=== PATIENT | female | born 1965 | race American Indian/Alaskan Native ===

== ENCOUNTER 2019-06-09 20:44 | Inpatient (IN) | payer OTHER ==
[2019-06-09] MEDS ORDERED: ALTEPLASE 100 MG INJ KIT IV ONE ×2 (21:06)
[2019-06-09] MEDS ORDERED: SODIUM CHLORIDE 0.9% 50 ML IVPB IV ONE (21:06)
[2019-06-09] MEDS ORDERED: ALTEPLASE 100 MG INJ KIT ONE (21:08)
--- NOTE | 2019-06-09 21:14 | Cat Scan Report ---
NONENHANCED CT SCAN OF THE BRAIN: INDICATION: Stroke symptoms CODE STROKE [phone]. TECHNIQUE: Routine CT head without contrast. Sagittal and coronal reformatted images were obtained. A ll CT scans at this location are performed using CT dose reduction for ALARA by means of automated ex posure control. COMPARISON: None. FINDINGS: BRAIN / INTRACRANIAL CONTENTS: Hemorrhage:No intracranial hemorrhage; no subarachnoid hemorrhage Stroke mimics: None Acute/subacute territorial infarction: No CT findings to suggest acute territorial infarction; basal ganglia and thalami are normal; hig h convexity cortical sulci normal Lacunar infarctions: Vasculopathy: Dense middle cerebral artery sign: Not present Internal carotid artery terminus: Normal Basilar artery:Normal Middle cerebral artery branches in the sylvian fissure (Dot sign): Normal Calcified embolus: Not present ASPECT score: Not applicable Chronic lesions: Chronic white matter lesions seen on the left frontal horn and in the left centrum s emiovale wall probably due to chronic small vessel disease Craniocervical junction:No significant abnormality Orbits:No significant abnormality Paranasal sinuses/mastoids:No significant abnormality Additional findings: None IMPRESSION: No acute/ subacute infarction This exam was performed as part of a code stroke protocol. The exam was completed at [facility] on 06/09/2019 8:03 PM. The exam was reviewed at 8:06 PM and ER physician was notified at 8:09 PM Central daylight saving time. Signer Name: Robel De Guzman MD Signed: 06/09/2019 9:10 PM Workstation Name: [id number]
[2019-06-09] MEDS ORDERED: hydrALAZINE 20 MG/1 ML INJ IV ONE (21:22)
[2019-06-09 21:25] LABS: Hematocrit 43.7 % (30.3-42.9); Hemoglobin 14.2 gm/dl (10.1-14.3); Mean Corpuscular HGB Conc 32 % (30-34); Mean Corpuscular Volume 84 fl (79-97); Red Blood Count 5.19 M/mm3 (3.65-5.03); Red Cell Distribution Width 13.6 % (13.2-15.2)
[2019-06-09 21:26] LABS: INR 0.96 (0.87-1.13); Platelet Count 276 K/mm3 (140-440); Thrombin Time 13.1 Sec. (15.1-19.6)
[2019-06-09] MEDS ORDERED: hydrALAZINE 20 MG/1 ML INJ ONE (21:27)
[2019-06-09 21:30] LABS: Creatine Kinase MB 1.4 ng/mL (0.0-4.0)
[2019-06-09 21:32] LABS: Alanine Aminotransferase 17 units/L (7-56); Albumin 4.5 g/dL (3.9-5); BUN/Creatinine Ratio 24; Blood Urea Nitrogen 17 mg/dL (7-17); Calcium 9.9 mg/dL (8.4-10.2); Hemolysis Index 7
--- NOTE | 2019-06-09 21:34 | Consultation ---
History of Present Illness History of present illness: [facility] Tele[facility] Date of Service: 06/09/2019 20:39:12 Impression: Rule Out Acute Ischemic Stroke Comments/Sign-Out: 54 YO F with h/o HTN presented with an episode of unresponsiveness followed by confusion, right facial droop and trouble with comprehension. R/O stroke Metrics: Last Known Well: 06/09/2019 19:45:00 [employer] Notification Time: 06/09/2019 20:38:48 Arrival Time: 06/09/2019 20:44:00 Stamp Time: 06/09/2019 20:39:12 Time First Login Attempt: 06/09/2019 20:44:43 Video Start Time: 06/09/2019 20:44:43 Symptoms: unresponsive, AMS NIHSS Start Assessment Time: 06/09/2019 20:55:00 tPA Verbal Order Time: 06/09/2019 21:03:34 Patient is a candidate for tPA. tPA CPOE Order Time: 06/09/2019 21:05:13 Needle Time: 06/09/2019 21:15:00 Weight Noted by Staff: 81.4 kg Video End Time: 06/09/2019 21:32:18 CT head showed no acute hemorrhage or acute core infarct. Lower Likelihood of Large Vessel Occlusion but Following Stat Studies are Recommended CTA Head and Neck. ED Physician notified of diagnostic impression and management plan on 06/09/2019 21:09:57 Verbal Consent to tPA: I have explained to the Patient and Family the nature of the patients condition, the use of tPA fibrinolytic agent, and the benefits to be reasonably expected compared with alternative approaches. I have discussed the likelihood of major risks or complications of this procedure including (if applicable) but not limited to loss of limb function, brain damage, paralysis, hemorrhage, infection, complications from transfusion of blood components, drug reactions, blood clots and loss of life. I have also indicated that with any procedure there is always the possibility of an unexpected complication. All questions were answered and Patient and Family express understanding of the treatment plan and consent to the treatment. Our recommendations are outlined below. Recommendations: IV tPA recommended. tPA bolus given Without Complication. IV tPA Total Dose 73.3 mg IV tPA Bolus Dose 7.3 mg IV tPA Infusion Dose - 65.9 mg Routine post tPA monitoring including neuro checks and blood pressure control during/after treatment Monitor blood pressure Check blood pressure and NIHSS every 15 min for 2 h, then every 30 min for 6 h, and finally every hour for 16 h. Manage Blood Pressure per post tPA protocol. Admission to ICU CT brain 24 hours post tPA NPO until swallowing screen performed and passed No antiplatelet agents or anticoagulants (including heparin for DVT prophylaxis) in first 24 hours No Hubbard catheter, nasogastric tube, arterial catheter or central venous catheter for 24 hr, unless absolutely necessary Telemetry Bedside swallow evaluation HOB less than 30 degrees Euglycemia Avoid hyperthermia, PRN acetaminophen DVT prophylaxis Inpatient Neurology Consultation Stroke evaluation as per inpatient neurology recommendations Discussed with ED physician History of Present Illness: Patient is a 54 year old Female. Patient was brought by EMS for symptoms of unresponsive, AMS 54 YO F with h/o HTN presented with an episode of unresponsiveness followed by confusion, right facial droop and trouble with comprehension. Patient does not provide much history. Spoke with her son Georgi franco who states that she was fine and all of sudden went unresponsive and was not making sense. Risks/benefits/cotraindications of TPA were disucssed with her son who denied any contraindications, understood the risks and wanted to proceed with TPA. CT head showed no acute hemorrhage or acute core infarct. Last seen normal was within 4.5 hours. There is no history of hemorrhagic complications or intracranial hemorrhage. There is no history of Recent Anticoagulants. There is no history of recent major surgery. There is no history of recent stroke. Examination: BP(165/87), Pulse(94), Blood Glucose(105) 1A: Level of Consciousness - Alert; keenly responsive + 0 1B: Ask Month and Age - 1 Question Right + 1 1C: Blink Eyes & Squeeze Hands - Performs Both Tasks + 0 2: Test Horizontal Extraocular Movements - Normal + 0 3: Test Visual Golden - No Visual Loss + 0 4: Test Facial Palsy (Use Grimace if Obtunded) - Normal symmetry + 0 5A: Test Left Arm Motor Drift - Drift, hits bed + 2 5B: Test Right Arm Motor Drift - Drift, hits bed + 2 6A: Test Left Leg Motor Drift - Drift, hits bed + 2 6B: Test Right Leg Motor Drift - Drift, hits bed + 2 7: Test Limb Ataxia (FNF/Heel-Haynes) - No Ataxia + 0 8: Test Sensation - Normal; No sensory loss + 0 9: Test Language/Aphasia - Mild-Moderate Aphasia: Some Obvious Changes, Without Significant Limitation + 1 10: Test Dysarthria - Mild-Moderate Dysarthria: Slurring but can be understood + 1 11: Test Extinction/Inattention - No abnormality + 0 NIHSS Score: 11 Patient was informed the Neurology Consult would happen via TeleHealth consult by way of interactive audio and video telecommunications and consented to receiving care in this manner. Due to the immediate potential for life-threatening deterioration due to underlying acute neurologic illness, I spent 35 minutes providing critical care. This time includes time for face to face visit via telemedicine, review of medical records, imaging studies and discussion of findings with providers, the patient and/or family. Dr Antonina Clements [facility] Case [id number] Medications and Allergies Allergies Allergy/AdvReac Type Severity Reaction Status Date / Time No Known Allergies Allergy Verified 06/09/19 21:09 Physical Examination - Vital Signs Vital Signs: Vital Signs Pulse Resp BP Pulse Ox 102 H 21 165/83 96 06/09/19 20:44 06/09/19 20:44 06/09/19 20:44 06/09/19 20:44 Results - Laboratory Findings CBC and BMP: 06/09/19 21:01 06/09/19 21:01 Abnormal Lab Findings: Abnormal Labs 06/09/19 06/09/19 06/09/19 21:01 21:01 21:01 WBC 16.8 H RBC 5.19 H Hct 43.7 H MCH 27 L Thrombin Time 13.1 L Sodium 135 L Chloride 96.4 L Carbon Dioxide 20 L Glucose 124 H Ammonia Total Protein 9.0 H 06/09/19 21:01 WBC RBC Hct MCH Thrombin Time Sodium Chloride Carbon Dioxide Glucose Ammonia 90.0 H Total Protein
--- NOTE | 2019-06-09 21:37 | Emergency Department Report ---
HPI - General Chief Complaint: Neuro Symptoms/Deficit Time Seen by Provider: 06/09/19 20:46 - HPI HPI: 54-year-old -[place] female presents to the emergency department via EMS from home as a code stroke. Apparently patient's last known well time was about 7:45 PM this evening. The patient was recently diagnosed with hypertension but prior to this she does not regularly follow with any primary care or specialty physicians. The patient was found to have right-sided facial droop and either difficulty with comprehension or aphasia. The patient has never been to this facility previously. She is a poor historian secondary to her current medical condition. ED Past Medical Hx - Past Medical History Previous Medical History?: Yes Hx Hypertension: Yes - Social History Smoking Status: Unknown if ever smoked ED Review of Systems ROS: Stated complaint: AMS/POSS STROKE Other details as noted in HPI Comment: Unobtainable due to pts medical conditions Physical Exam - Physical Exam Vital Signs: Vital Signs 06/09/19 20:44 Pulse Rate 102 H Respiratory 21 Rate Blood Pressure 165/83 O2 Sat by Pulse 96 Oximetry Physical Exam: GENERAL: Patient is ill-appearing. HENT: Normocephalic. Atraumatic. Patient has moist mucous membranes. EYES: Extraocular motions are intact. Pupils equal reactive to light bilaterally. NECK: Supple. Trachea is midline. CHEST/LUNGS: Clear to auscultation. There is no respiratory distress noted. HEART/CARDIOVASCULAR: Regular. There is no tachycardia. ABDOMEN: Abdomen is soft, nontender. Patient has normal bowel sounds. SKIN: Skin is warm and dry. NEURO: The patient is awake but appears confused and is nonverbal. She follows some commands. Withdraws from painful stimuli. There is right-sided nasolabial fold paresis. Bilateral upper extremity weakness with drift hitting the gurney. MUSCULOSKELETAL: There is no tenderness or deformity. There is no evidence of acute injury. ED Course Vital Signs 06/09/19 20:44 Pulse Rate 102 H Respiratory 21 Rate Blood Pressure 165/83 O2 Sat by Pulse 96 Oximetry - Reevaluation(s) Reevaluation #1: We have attempted to get a CT angiography of the head and neck twice but both times the IV contrast has extravasated. The patient's upper extremities have been examined and she is neurovascularly intact. There are good distal pulses and the soft tissue is soft and warm. We do not have any IV team available. I spoke with the telemedicine neurologist and updated him regarding the CT angiography. He is in agreement with the plan to get a repeat noncontrasted CT head. 06/09/19 23:31 06/10/19 02:51 I have continued to evaluate the right upper extremity after the contrast extravasation. There is some swelling apparent to the forearm and distal upper arm. Patient has +2/4 right radial pulse and capillary refill less than 2 seconds. There is full range of motion of the right upper extremity. The arm will be wrapped in a warm towel and slightly elevated on a pillow. - Consultations Consultation #1: Patient was seen by the telemedicine neurologist, Dr. Clements, immediately after the patient's return from CT scan of the head without contrast. He believes that the patient could have some generalized encephalopathy but given the facial droop and issues with comprehension he has recommended that the patient received TPA. 06/09/19 21:37 ED Medical Decision Making - Lab Data Result diagrams: 06/09/19 21:01 06/09/19 21:01 - EKG Data -: EKG Interpreted by Me EKG shows normal: sinus rhythm, axis, intervals (Prolonged QTC), QRS complexes (Q waves to the septal leads, LVH), ST-T waves Rate: normal - EKG Data When compared to previous EKG there are: previous EKG unavailable Interpretation: other (Sinus rhythm, normal axis, prolonged QTC, Q waves to the septal leads, LVH) - Radiology Data Radiology results: report reviewed interpreted by me: Chest x-ray does not show any pneumonia, pleural effusions or pneumothorax. There is some right-sided tracheal deviation and some superior mediastinum widening that appears higher than the aortic arch. NONENHANCED CT SCAN OF THE BRAIN: INDICATION: Stroke symptoms CODE STROKE [phone]. TECHNIQUE: Routine CT head without contrast. Sagittal and coronal reformatted images were obtained. All CT scans at this location are performed using CT dose reduction for ALARA by means of automated exposure control. COMPARISON: None. FINDINGS: BRAIN / INTRACRANIAL CONTENTS: Hemorrhage:No intracranial hemorrhage; no subarachnoid hemorrhage Stroke mimics: None Acute/subacute territorial infarction: No CT findings to suggest acute territorial infarction; basal ganglia and thalami are normal; high convexity cortical sulci normal Lacunar infarctions: Vasculopathy: Dense middle cerebral artery sign: Not present Internal carotid artery terminus: Normal Basilar artery:Normal Middle cerebral artery branches in the sylvian fissure (Dot sign): Normal Calcified embolus: Not present ASPECT score: Not applicable Chronic lesions: Chronic white matter lesions seen on the left frontal horn and in the left centrum semiovale wall probably due to chronic small vessel disease Craniocervical junction:No significant abnormality Orbits:No significant abno rmality Paranasal sinuses/mastoids:No significant abnormality Additional findings: None IMPRESSION: No acute/ subacute infarction CT neck wo con INDICATION / CLINICAL INFORMATION: mass abnormal Chest x-ray. TECHNIQUE: Axial CT imaging of the neck was obtained without contrast. Coronal and sagittal reformatted imaging obtained and reviewed. All CT scans at this lo cation are performed using CT dose reduction for ALARA by means of automated exposure control. COMPARISON: Chest radiograph ,06/09/2019 FINDINGS: CT neck without contrast demonstrates massively enlarged thyroid gland. The right lobe measures approximately 10.5 x 4.5 cm. The left lobe measures approximately 10.3 x 3.5 cm. The left thyroid lobe extends inferiorly into the superior aspect of the mediastinum. This very large goiter is the reason for the abnormally widened mediastinum on recent chest radiograph. I do not see any discrete mass or cyst within the enlarged thyroid gland. The thyroid gland is encasing the upper trachea and is causing mild mass effect and extrinsic compression on the t rachea. The more distal aspect of the trachea deviates to the right. The superior aspect of the right lobe extends posterior to to the pharynx at the level of the hyoid bone. There are a few mildly prominent lymph nodes in the upper cervical chain probably reactive. No additional masses are seen within the neck. Salivary glands are unremarkable. No significant osseous abnormality. IMPRESSION: 1. Massively enlarged thyroid gland consistent with goiter. The left thyroid lobe extends inferiorly to involve the superior mediastinum. Goiter is causing extrinsic mass effect on the upper portion of the trachea. 2. No other significant finding. CT chest wo con INDICATION / CLINICAL INFORMATION: Abnormal CXR. Chest radiograph demonstrated abnormally widened mediastinum. TECHNIQUE: Axial CT imaging of the thorax was obtained without contrast. Coronal and sagittal reformatted imaging obtained and reviewed. All CT scans at this location are performed using CT dose reduction for ALARA by means of automated exposure control. COMPARISON: Recent chest radiograph, 06/09/2019 FINDINGS: CT thorax without contrast demonstrates a massively enlarged thyroid gland some of which extends into the superior mediastinum. This would account for the abnormally widened mediastinum on recent chest radiograph. The thyroid lobes measure approximately 10-11 cm in length and approximately 4.5 cm in transverse diameter. The right thyroid lobe is larger than the left. The left thyroid lobe extends more inferiorly into the mediastinum. I do not see any discrete mass within the goiter. Goiter is causing the trachea to deviate to the right. There is some degree of extrinsic compression surrounding the upper trachea. The mediastinum is otherwise unremarkable. Thoracic aorta has a normal caliber. No adenopathy noted. Heart size is normal. No pericardial effusion. Both lungs are well aerated and clear. No evidence for pneumonia, mass, or pleural effusion. Imaging obtained of the upper abdomen demonstrates a small hiatal hernia but no other significant abnormality. No significant acute skeletal abnormality noted. Mild spondylitic change noted throughout the thoracic spine. IMPRESSION: 1. Massively enlarged thyroid gland consistent with goiter. No evidence of a discrete thyroid mass. There is mass effect on the trachea. 2. No pulmonary abnormality. - Medical Decision Making This patient presents to the emergency department as a code stroke. She is nonverbal and both appears to have some aphasia and difficulty with comprehensio n. Her exam is confusing as 1 minute she appears to have bilateral upper extremity weakness, but is then seen moving both extremities spontaneously shortly afterwards. A stat CT scan of the head without contrast was completed that did not show any bleed or acute infarction. The patient was seen by the telemedicine neurologist shortly upon return from CT scan, and the decision was made to give the patient TPA. The patient's labs shows a mild leukocytosis of about 16,000, hypokalemia with a potassium of 2.8, and hyperammonemia of 90. Although the neurologist feels that it is a low suspicion for a large vessel occlusion, the plan was to get a CT angiography of the head and neck. The patie nt had an initial attempt but the IV infiltrated and there was some contrast extravasation. I then placed a right brachial 18-gauge peripheral IV. This was an ultrasound-guided peripheral IV that appeared to be well placed, flushed well, had blood return, so the patient was once again sent for the CT angiography. The initial tests at CT also showed it to be a patent IV but shortly afterwards the patient once again had some contrast extravasation. The affected right upper extremity was reevaluated multiple times throughout the rest of her ED course and she has remained neurovascular intact. There is some swelling seen but she has normal skin color, good/brisk capillary refill, +2/4 radial pulse and there are no signs of any skin breakdown including any ulcerations or blistering. At this point in the evening, I do not have any IV team available and I am unable to get an MRI. I spoke to the telemedicine neurologist again and the decision was made to get a repeat CT scan of the head to make sure that there was no post TPA bleeding. The patient had a chest x-ray that showed a widened superior mediastinum and some right tracheal deviation. Therefore a CT scan of the neck and chest were also added. CT scan of the head did not show any ischemia, bleed, or any acute changes. CT scan of the neck and chest show a large thyroid goiter. The patient will be admitted to the ICU for further evaluation and treatment and was accepted for admission by the hospitalist, Dr. Scott. Critical Care Time: Yes Critical care time in (mins) excluding proc time.: 45 Critical care attestation.: If time is entered above; I have spent that time in minutes in the direct care of this critically ill patient, excluding procedure time. Due to the immediate potential for life-threatening deterioration due to underlying neurologic and metabolic conditions, I spent 45 minutes of critical care time with the patient. Critical Care Time: 45 minutes ED Disposition Clinical Impression: Hypokalemia, Hyperammonemia, Metabolic encephalopathy CVA (cerebral vascular accident) Qualifiers: CVA mechanism: unspecified Qualified Code(s): I63.9 - Cerebral infarction, unspecified Hypertension Qualifiers: Hypertension type: essential hypertension Qualified Code(s): I10 - Essential (primary) hypertension Disposition: 09 OP ADMIT IP TO THIS HOSP Is pt being admited?: Yes Condition: Serious Time of Disposition: 05:03
[2019-06-09 21:42] LABS: Partial Thromboplastin Time TNR Sec. (24.2-36.6)
[2019-06-09] MEDS ORDERED: LACTULOSE 20 GM/30 ML ORAL LIQD PO ONE (21:43)
[2019-06-09 21:55] LABS: Platelet Clumps 1+; RBC Morphology Normal; Total Cells Counted 100
[2019-06-09] MEDS ORDERED: niCARdipine 50 MG in SODIUM CHLORIDE 0.9% 250ML 230 ML IV SCH (22:00)
[2019-06-09] MEDS ORDERED: ONDANSETRON 4 MG/2 ML INJ ONE (22:43)
[2019-06-09] MEDS ORDERED: ONDANSETRON 4 MG/2 ML INJ IV ONE (22:45)
--- NOTE | 2019-06-10 00:03 | XRay Report ---
CHEST 1 VIEW INDICATION / CLINICAL INFORMATION: AMS. COMPARISON: None available. FINDINGS: SUPPORT DEVICES: None. HEART / MEDIASTINUM: The superior mediastinum is widened and there is displacement of the trachea to the right. Transverse measurement of the superior mediastinum is 8.4 cm. I suspect this will represen t substernal goiter, but further evaluation with chest CT is recommended to exclude mass.. LUNGS / PLEURA: No significant pulmonary or pleural abnormality. No pneumothorax. ADDITIONAL FINDINGS: No significant additional findings. IMPRESSION: 1. No acute pulmonary or pleural disease. 2. Abnormally widened superior mediastinum with tracheal displacement to the right. Recommend further evaluation with chest CT when the patient is able. The use of IV contrast, if possible, would be hel pful. Signer Name: Anahy Anaya MD Signed: 06/09/2019 11:58 PM Workstation Name: [id number]
--- NOTE | 2019-06-10 02:12 | Cat Scan Report ---
CT head/brain wo con INDICATION / CLINICAL INFORMATION: Altered Mental Status, Status-Post TPA REPEAT SCAN FROM EARLIER TONIGHT!. TECHNIQUE: Axial CT imaging of the brain was obtained without contrast. Coronal and sagittal reformatted imaging obtained and reviewed. All CT scans at this location are performed using CT dose reduction for ALAR A by means of automated exposure control. COMPARISON: Head CT, 06/09/2019 FINDINGS: No evidence for intracranial hemorrhage following TPA administration. No intracranial hemorrhage, mas s, or midline shift noted. Ventricular system and basilar cisterns are unremarkable. No suggestion of acute CVA. There continues to be chronic white matter lesions seen in the left frontal horn and left centrum semiovale unchanged from earlier study. Paranasal sinuses are well aerated and clear. IMPRESSION: 1. No acute intracranial abnormality at this time. No evidence for intracranial hemorrhage or evolvin g CVA. Signer Name: Anahy Anaya MD Signed: 06/10/2019 2:08 AM Workstation Name: [id number]
--- NOTE | 2019-06-10 02:18 | Cat Scan Report ---
CT chest wo con INDICATION / CLINICAL INFORMATION: Abnormal CXR. Chest radiograph demonstrated abnormally widened mediastinum. TECHNIQUE: Axial CT imaging of the thorax was obtained without contrast. Coronal and sagittal reformatted imagin g obtained and reviewed. All CT scans at this location are performed using CT dose reduction for ALA RA by means of automated exposure control. COMPARISON: Recent chest radiograph, 06/09/2019 FINDINGS: CT thorax without contrast demonstrates a massively enlarged thyroid gland some of which extends into the superior mediastinum. This would account for the abnormally widened mediastinum on recent chest radiograph. The thyroid lobes measure approximately 10-11 cm in length and approximately 4.5 cm in tr ansverse diameter. The right thyroid lobe is larger than the left. The left thyroid lobe extends more inferiorly into the mediastinum. I do not see any discrete mass within the goiter. Goiter is causing the trachea to deviate to the right. There is some degree of extrinsic compression surrounding the u pper trachea. The mediastinum is otherwise unremarkable. Thoracic aorta has a normal caliber. No adenopathy noted. Heart size is normal. No pericardial effusion. Both lungs are well aerated and clear. No evidence for pneumonia, mass, or pleural effusion. Imaging obtained of the upper abdomen demonstrates a small hiatal hernia but no other significant abn ormality. No significant acute skeletal abnormality noted. Mild spondylitic change noted throughout the thoraci c spine. IMPRESSION: 1. Massively enlarged thyroid gland consistent with goiter. No evidence of a discrete thyroid mass. T here is mass effect on the trachea. 2. No pulmonary abnormality. Signer Name: Anahy Anaya MD Signed: 06/10/2019 2:14 AM Workstation Name: [id number]
--- NOTE | 2019-06-10 02:24 | Cat Scan Report ---
CT neck wo con INDICATION / CLINICAL INFORMATION: mass abnormal Chest x-ray. TECHNIQUE: Axial CT imaging of the neck was obtained without contrast. Coronal and sagittal reformatted imaging obtained and reviewed. All CT scans at this location are performed using CT dose reduction for ALARA by means of automated exposure control. COMPARISON: Chest radiograph ,06/09/2019 FINDINGS: CT neck without contrast demonstrates massively enlarged thyroid gland. The right lobe measures appro ximately 10.5 x 4.5 cm. The left lobe measures approximately 10.3 x 3.5 cm. The left thyroid lobe ext ends inferiorly into the superior aspect of the mediastinum. This very large goiter is the reason for the abnormally widened mediastinum on recent chest radiograph. I do not see any discrete mass or cys t within the enlarged thyroid gland. The thyroid gland is encasing the upper trachea and is causing m ild mass effect and extrinsic compression on the trachea. The more distal aspect of the trachea devia dorina to the right. The superior aspect of the right lobe extends posterior to to the pharynx at the le anum of the hyoid bone. There are a few mildly prominent lymph nodes in the upper cervical chain proba cam reactive. No additional masses are seen within the neck. Salivary glands are unremarkable. No significant osseous abnormality. IMPRESSION: 1. Massively enlarged thyroid gland consistent with goiter. The left thyroid lobe extends inferiorly to involve the superior mediastinum. Goiter is causing extrinsic mass effect on the upper portion of the trachea. 2. No other significant finding. Signer Name: Anahy Anaya MD Signed: 06/10/2019 2:20 AM Workstation Name: [id number]
[2019-06-10] MEDS ORDERED: hydrALAZINE 20 MG/1 ML INJ IV ONE (02:41)
[2019-06-10] MEDS: POTASSIUM CHLORIDE 10 MEQ 10 MEQ/100 ML BAG IV SCH ×4 (02:58→11:53)
[2019-06-10] MEDS ORDERED: SODIUM CHLORIDE 0.9% 1000 ML 1,000 ML ONE (03:19)
[2019-06-10] MEDS ORDERED: POTASSIUM CHLORIDE 10 MEQ 10 MEQ/100 ML BAG IV ONE (03:54)
[2019-06-10] MEDS ORDERED: ONDANSETRON 4 MG/2 ML INJ IV PRN (04:43)
[2019-06-10] MEDS ORDERED: METOCLOPRAMIDE 10 MG TAB PO PRN (04:43)
[2019-06-10] MEDS ORDERED: MAGNESIUM HYDROXIDE (MOM) ORAL LIQD UDC PO PRN (04:43)
[2019-06-10] MEDS ORDERED: ACETAMINOPHEN 325 MG TAB PO PRN (04:43)
--- NOTE | 2019-06-10 04:43 | History and Physical Report ---
History of Present Illness Date of admission: 06/10/19 04:05 History of present illness: History per nurse and emergency room physician. This is a 54-year-old woman with a history of hypertension was sent to the emergency room for evaluation. Apparently she was at home cooking when the family noted she just went blank, not talking or responding to them. She was brought to the emergency room, in the ER she was following commands appropriately, stated that she smoked marijuana around 1 PM. EMS notes stated that the patient had a mild right facial droop, there was none seen in the emergency room. patient was given TPA.SHe had episodes of nausea vomiting in the ER, repeat CT head was done which was negative patient had contrast infiltrated in the right arm which is now swollen. Review of system is unobtainable patient will be admitted for acute CVA PAST MEDICAL HISTORY: Hypertension PAST SURGICAL HISTORY: Unknown SOCIAL HISTORY:+ Marijuana FAMILY HISTORY: Unknown Medications and Allergies Allergies Allergy/AdvReac Type Severity Reaction Status Date / Time No Known Allergies Allergy Verified 06/09/19 21:09 Active Meds: Active Medications Hydralazine HCl (Apresoline) 5 mg IV Q6H PRN PRN Reason: Hypertension Exam - Physical Exam Narrative exam: Gen. appearance: Patient lying in bed, no apparent distress HEENT: Normocephalic, atraumatic, pupils equally round and reactive to light, extraocular movement intact, and no sclericterus,. No JVD or thyromegaly or nodule,neck supple, no carotid bruit ,mucous membranes moist, unable to examine oral cavity Heart: S1, S2, regular rate and rhythm Lungs: Clear bilaterally, breathing comfortable Abdomen: Positive bowel sounds, nontender, nondistended, no organomegaly Extremity: Right arm swelling no edema, cyanosis, clubbing Skin: No rash, nodules, warm, dry Neuro: Left preference gaze, difficult to assess, aphasic, moves all extremities - Constitutional Vitals: Temp Pulse Resp BP Pulse Ox 115 H 19 168/77 98 06/10/19 04:30 06/10/19 04:30 06/10/19 04:30 06/10/19 04:30 Results - Labs CBC & Chem 7: 06/10/19 05:34 06/10/19 05:34 Labs: Abnormal lab results 06/09/19 06/09/19 06/09/19 Range/Units 21:01 21:01 21:01 WBC 16.8 H (4.5-11.0) K/mm3 RBC 5.19 H (3.65-5.03) M/mm3 Hct 43.7 H (30.3-42.9) % MCH 27 L (28-32) pg Seg Neutrophils # Man 10.4 H (1.8-7.7) K/mm3 Basophils # (Manual) 0.2 H (0.0-0.1) K/mm3 Thrombin Time 13.1 L (15.1-19.6) Sec. Sodium 135 L (137-145) mmol/L Potassium 2.8 L* (3.6-5.0) mmol/L Chloride 96.4 L (98-107) mmol/L Carbon Dioxide 20 L (22-30) mmol/L Glucose 124 H (65-100) mg/dL Ammonia (25-60) umol/L Total Protein 9.0 H (6.3-8.2) g/dL 06/09/19 Range/Units 21:01 WBC (4.5-11.0) K/mm3 RBC (3.65-5.03) M/mm3 Hct (30.3-42.9) % MCH (28-32) pg Seg Neutrophils # Man (1.8-7.7) K/mm3 Basophils # (Manual) (0.0-0.1) K/mm3 Thrombin Time (15.1-19.6) Sec. Sodium (137-145) mmol/L Potassium (3.6-5.0) mmol/L Chloride (98-107) mmol/L Carbon Dioxide (22-30) mmol/L Glucose (65-100) mg/dL Ammonia 90.0 H (25-60) umol/L Total Protein (6.3-8.2) g/dL - Imaging and Cardiology CT scan - chest: report reviewed CT Scan - head: report reviewed Assessment and Plan CT neck reviewed Assessment Acute CVA, status post TPA Obtain MRI of the head neck, echo Start statin, no aspirin at this time Consult neurology, PT, OT, speech Consult critical care Enlarged goiter compressing the trachea Consult endocrinology, patient asymptomatic Hypokalemia, replete potassium Elevated ammonia level, continue lactulose Leukocytosis most likely stress-induced, monitor DVT prophylaxis
[2019-06-10 05:45] LABS: Hematocrit 40.8 % (30.3-42.9); Hemoglobin 13.5 gm/dl (10.1-14.3); Mean Corpuscular HGB Conc 33 % (30-34); Mean Corpuscular Volume 84 fl (79-97); Platelet Count 311 K/mm3 (140-440); Red Blood Count 4.88 M/mm3 (3.65-5.03); Red Cell Distribution Width 13.4 % (13.2-15.2)
[2019-06-10] MEDS: LACTULOSE ENEMA 1000 ML PR SCH ×3 (05:51→14:39)
[2019-06-10 06:13] LABS: BUN/Creatinine Ratio 34; Blood Urea Nitrogen 17 mg/dL (7-17); Calcium 9.8 mg/dL (8.4-10.2); Hemolysis Index 17
[2019-06-10] MEDS ORDERED: SODIUM CHLORIDE 0.45% 1000 ML 1,000 ML IV SCH (06:27)
[2019-06-10 06:54] LABS: Anisocytosis 1+; Basophils % (Manual) 0 % (0.0-1.8); Eosinophils % (Manual) 0 % (0.0-4.3); Platelet Estimate Consistent w Auto; Total Cells Counted 100
[2019-06-10] MEDS: hydrALAZINE 20 MG/1 ML INJ IV PRN ×2 (07:30→16:51)
[2019-06-10 10:49] LABS: Chol/HDL Ratio 3.02 %
--- NOTE | 2019-06-10 12:00 | Magnetic Resonance Report ---
MRI BRAIN 06/10/2019 INDICATION / CLINICAL INFORMATION: MAIN: stroke. AMS & LT SIDED WEAKNESS. TECHNIQUE: Multiplanar, multisequence MR images of the brain were obtained. COMPARISON: CT brain 06/10/2019 FINDINGS: BRAIN / INTRACRANIAL CONTENTS: Unenhanced MR images of the brain demonstrate a prominent area of acut e cortical ischemic injury involving anterior distribution of the left middle cerebral artery, involv ing significant portions of the left frontal cortex and portions of the left parietal cortex. Cortica l edema and sulcal obscuration is present. Overall mass effect is limited at this time. There is no evidence of associated hemorrhage. There are no abnormal extra-axial fluid collections. Underlying brain parenchyma is unremarkable. EXTRACRANIAL: Unremarkable CRANIOCERVICAL JUNCTION: No significant abnormality. VASCULAR FLOW-VOIDS: No significant abnormality. IMPRESSION: Acute left frontal and parietal cortical infarct, with no evidence of hemorrhage. Signer Name: Jai Phelps MD Signed: 06/10/2019 11:56 AM Workstation Name: [id number]
--- NOTE | 2019-06-10 12:03 | Magnetic Resonance Report ---
MRA HEAD 06/10/2019 INDICATION / CLINICAL INFORMATION: MAIN: stroke, AMS, LT SIDED WEAKNESS. TECHNIQUE: Routine MRA of the head is performed. 3-D/MIP reformats postprocessed. Significant patient motion art ifact is present. COMPARISON: MRI brain performed at the same time as this exam. FINDINGS: There is absent flow signal in the left middle cerebral artery, as well as limited flow signal visibl e in anterior cerebral arteries bilaterally. This is likely due to a combination of vessel occlusion or slow flow and the motion artifact mentioned above. The overall caliber of the left internal caroti d artery is relatively smaller than the right. In the posterior circulation, there is limited flow signal visible in a right posterior cerebral david ry, also of uncertain significance based on the presence of motion artifact. Irregularity is seen rupert ng the course of the left posterior cerebral artery. In combination with the findings on the brain MR images, which demonstrate left anterior middle cereb ral artery territory ischemia, findings of nonvisualization left middle cerebral artery are likely re lated to occlusion. Absence of flow signal in anterior posterior cerebral arteries is of uncertain si gnificance given the level of motion artifact. Depending on details of the clinical circumstances, fu rther evaluation with improved quality MR angiography or contrast-enhanced CT angiography could be pe rformed. Signer Name: Jai Phelps MD Signed: 06/10/2019 11:59 AM Workstation Name: [id number]
--- NOTE | 2019-06-10 13:20 | Consultation ---
Medications and Allergies Allergies Allergy/AdvReac Type Severity Reaction Status Date / Time No Known Allergies Allergy Verified 06/09/19 21:09 Active Meds: Active Medications Acetaminophen (Tylenol) 650 mg PO Q4H PRN PRN Reason: Pain, Mild (1-3) Atorvastatin Calcium (Lipitor) 40 mg PO QHS LETY Bisacodyl (Dulcolax) 10 mg [place] QDAY PRN PRN Reason: Constipation Hydralazine HCl (Apresoline) 5 mg IV Q6H PRN PRN Reason: Hypertension Last Admin: 06/10/19 07:30 Dose: 5 mg Documented by: Sodium Chloride (Nacl 0.45% 1000 Ml) 1,000 mls @ 75 mls/hr IV DIRECT LETY Labetalol HCl (Labetalol) 20 mg IV Q4HR PRN PRN Reason: SBP >/=160 Lactulose (Cephulac) 200 gm WV Q6H LETY Last Admin: 06/10/19 07:15 Dose: 200 gm Documented by: Ondansetron HCl (Zofran) 4 mg IV Q8H PRN PRN Reason: Nausea And Vomiting Sodium Chloride (Sodium Chloride Flush Syringe 10 Ml) 10 ml IV PRN PRN PRN Reason: LINE FLUSH Physical Examination - Vital Signs Vital Signs: Vital Signs Pulse Resp BP Pulse Ox 102 H 21 165/83 96 06/09/19 20:44 06/09/19 20:44 06/09/19 20:44 06/09/19 20:44 Results - Laboratory Findings CBC and BMP: 06/10/19 05:34 06/10/19 05:34 Abnormal Lab Findings: Abnormal Labs 06/09/19 06/09/19 06/09/19 21:01 21:01 21:01 WBC 16.8 H RBC 5.19 H Hct 43.7 H MCH 27 L Seg Neuts % (Manual) Lymphocytes % (Manual) Seg Neutrophils # Man 10.4 H Lymphocytes # (Manual) Basophils # (Manual) 0.2 H Thrombin Time 13.1 L Sodium 135 L Potassium 2.8 L* Chloride 96.4 L Carbon Dioxide 20 L Creatinine Glucose 124 H Ammonia Total Protein 9.0 H Cholesterol LDL Cholesterol Direct HDL Cholesterol 06/09/19 06/10/19 06/10/19 21:01 05:34 05:34 WBC 17.4 H RBC Hct MCH Seg Neuts % (Manual) 96.0 H Lymphocytes % (Manual) 3.0 L Seg Neutrophils # Man 16.7 H Lymphocytes # (Manual) 0.5 L Basophils # (Manual) Thrombin Time Sodium Potassium Chloride Carbon Dioxide 21 L Creatinine 0.5 L Glucose 146 H Ammonia 90.0 H Total Protein Cholesterol LDL Cholesterol Direct HDL Cholesterol 06/10/19 05:34 WBC RBC Hct MCH Seg Neuts % (Manual) Lymphocytes % (Manual) Seg Neutrophils # Man Lymphocytes # (Manual) Basophils # (Manual) Thrombin Time Sodium Potassium Chloride Carbon Dioxide Creatinine Glucose Ammonia Total Protein Cholesterol 269 H LDL Cholesterol Direct 172 H HDL Cholesterol 89 H Assessment and Plan 54 YR OLD FEMALE WITH HISTORY OF HYPERTENSION WAS BROUGHT INTO THE ER BECAUSE FAMILY MEMBERS NOTICED THAT SHE SUDDENLY BECAME UNRESPONSIVE WHILE COOKING FOOD. SHE WOULD NOT ANSWER THEIR QUESTIONS.THEY ALSO NOTICED RT FACIAL DROOP. AT ER STROKE PROTOCOL WAS INITIATED, EVALUATED BY TELE NEUROLOGIST AND WAS GIVEN TPA. INITIAL WORK UP INCLUDING CT SCAN OF THE BRAIN WAS NEGATIVE,PATIENT WAS ADMITTED TO ICU FOLLOWING TPA ADMINISTRATION. MRI SHOWED HUGE INFARCT IN THE TERRITORY OF LEFT MIDDLE CEREBRAL ARTERY INVOLVING LEFT FRONTAL AND PARIETAL LOBE. MRA SHOWED ABSENT FLOW SIGNAL IN LEFT MIDDLE CEREBRAL ARTERY AND ALSO LIMITED FLOW OF BOTH POSTERIOR CEREBRAL ARTERIES, AND ALSO LEFT ICA HAS LOW CALIBERAS WELL. PHYSICAL EXAMINATION IN NO ACUTE DISTRESS.MAKES EYE CONTACT. FOLLOWS SIMPLE COMMAND. HEART-NORMAL RATE AND RHYTHM CAROTID-BOTH PALPABLE, LEFT SIDE VERY FEEBLE. CRANIAL NERVES- FLATTENING OF RT NASO LABIAL FOLD.PUPILS REACT TO LIGHT, OTHER CRANIAL NERVES ARE WITH IN NORMAL LIMIT WITH IN LIMITATION OF EXAMINATION. MOTOR- WEAK RT LOWER AND UPPER EXTREMITY, RT UPPER SIGNIFICANTLY WEAKER THAN THE RT LOWER EXTREMITY. MUSCLE TONE IS INCREASED ON THE RT UPPER AND LOWER EXTREMITIES. REFLEXES- REFLEXES ARE IN CREAESD ON THE RT UPPER AND LOWER EXTREMITIES WITH UP GOING TOE ON THE RT SIDE. SENSORY-GROSSLY WITH IN NORMAL LIMIT,DETAILED SENSORY EXAMINATION COULD NOT BE DONE DUE PATIENT'S POOR LEVEL OF COOPERATION. IMPRESSION. 1. HUGE LEFT MCA TERRITORY INFARCT WITH MRA EVIDENCE OF ABSENT FLOW SIGNAL SUGGEST LARGE VESSEL OCCLUSION RECOMMEND. TRANSFER TO A FACILITY WHERE INTERVENTIONAL NEUROLOGIST/ VASCULAR NEURO RADIOLOGIST IS AVAILABLE.
--- NOTE | 2019-06-10 14:47 | Progress Note ---
Assessment and Plan Assessment and plan: Patient is a 54 yo woman with a history of hypertension and marijuana use who presented to [facility] ED with right facial droop, right sided weakness and excessive aphasia with N/V. She gives no history. Her last known well time was 1944 She tPA started at 12:15am on 06/10/19. She had episodes of nausea and vomiting in the ER, repeat CT head was done which was negative patient had contrast infiltrated in the right arm which is now swollen. * CT head without contrast IMPRESSION: No acute/ subacute infarction * CT neck wo con IMPRESSION: 1. Massively enlarged thyroid gland consistent with goiter. The left thyroid lobe extends inferiorly to involve the superior mediastinum. Goiter is causing extrinsic mass effect on the upper portion of the trachea. 2. No other significant finding. * CT chest wo con IMPRESSION: 1. Massively enlarged thyroid gland consistent with goiter. No evidence of a discrete thyroid mass. There is mass effect on the trachea. 2. No pulmonary abnormality. * Brain MRI IMPRESSION: Acute left frontal and parietal cortical infarct, with no evidence of hemorrhage. * Brain MRA FINDINGS: There is absent flow signal in the left middle cerebral artery, as well as limited flow signal visible in anterior cerebral arteries bilaterally. This is likely due to a combination of vessel occlusion or slow flow and the motion artifact mentioned above. The overall caliber of the left internal carotid artery is relatively smaller than the right. In the posterior circulation, there is limited flow signal visible in a right posterior cerebral artery, also of uncertain significance based on the presence of motion artifact. Irregularity is seen along the course of the left posterior cerebral artery. In combination with the findings on the brain MR images, which demonstrate left anterior middle cerebral artery territory ischemia, findings of nonvisualization left middle cerebral artery are likely related to occlusion. Absence of flow signal in anterior posterior cerebral arteries is o f uncertain significance given the level of motion artifact. Depending on details of the clinical circumstances, further evaluation with improved quality MR angiography or contrast-enhanced CT angiography could be performed. HUGE LEFT MCA TERRITORY INFARCT WITH MRA EVIDENCE OF ABSENT FLOW SIGNAL SUGGEST LARGE VESSEL OCCLUSION Acute CVA, status post TPA Enlarged goiter compressing the trachea: Consult endocrinology as [place] advised, patient asymptomatic Hypokalemia, replete potassium Elevated ammonia level, continue lactulose Leukocytosis most likely stress-induced, monitor DVT prophylaxis 06/10/19: d/w Neurologist Dr. Valencia, who recommends transfer to [facility] [place], so I called and accepted by Dr. Austin. I called paternal twin brother Jose, , no answer, left message. Then I called and spoke with oldest son, Georgi Hayes , He will speak with daughter, Bull Hayes . Patient's other son, Sridhar Hayes lives in the [facility] area. No COVID-19 exposure. Patient was on vacation 1 month prior to covid and never returned because she got laid off. I told them she is going to [place] for Neurosurgical monitoring and stroke has completed per Dr. Machuca and Dr. Austin from [place]. I have asked [facility] Charge nurse to send a CD rom copy History Interval history: Patient was seen and examined. Follow-up on current diagnosis CVA. Overnight uneventful as no events directly reported to me. Patient denies any chest pain, shortness breath, nausea/vomiting or severe headaches. Imaging, nursing note, chart, labs and old chart reviewed. Discussed with patient. Hospitalist Physical - Physical exam Narrative exam: Gen: WDWN, NAD, Awake, Alert, Orientated following commands but can't speak HEENT: NCAT, EOMI, PERRL, OP Clear +alopecia Neck: supple, no adenopathy, no thyromegaly, no JVD CVS/Heart: RRR, normal S1S2, pulses present bilaterally Chest/Lungs: CTA B, Symmetrical chest expansion, good air entry bilaterally GI/Abdomen: soft, NTND, good bowel sounds, no guarding or rebound /Bladder: no suprapubic tenderness, no CVA or paraspinal tenderness Extermity/Skin: no c/c/e, no obvious rash MSK: FROM x 3, 0/5 RUE, twitch RLE to commands Neuro: CN 2-12 grossly intact except speech, facial droop, aphasia, right hemiparesis Psych: calm - Constitutional Vitals: Temp Pulse Resp BP Pulse Ox 98.9 F 86 15 181/78 100 06/10/19 08:00 06/10/19 14:31 06/10/19 14:31 06/10/19 14:31 06/10/19 14:31 Results - Labs CBC & Chem 7: 06/10/19 05:34 06/10/19 05:34 Labs: Laboratory Last Values WBC 17.4 K/mm3 (4.5-11.0) H 06/10/19 05:34 RBC 4.88 M/mm3 (3.65-5.03) 06/10/19 05:34 Hgb 13.5 gm/dl (10.1-14.3) 06/10/19 05:34 Hct 40.8 % (30.3-42.9) 06/10/19 05:34 MCV 84 fl (79-97) 06/10/19 05:34 MCH 28 pg (28-32) 06/10/19 05:34 MCHC 33 % (30-34) 06/10/19 05:34 RDW 13.4 % (13.2-15.2) 06/10/19 05:34 Plt Count 311 K/mm3 (140-440) 06/10/19 05:34 Lymph % (Auto) [place] 06/09/19 21:01 [place] % (Auto) [place] 06/09/19 21:01 Eos % (Auto) [place] 06/09/19 21:01 Baso % (Auto) [place] 06/09/19 21:01 Lymph # [place] 06/09/19 21:01 [place] # [place] 06/09/19 21:01 Eos # [place] 06/09/19 21:01 Baso # [place] 06/09/19 21:01 Add Manual Diff Complete 06/10/19 05:34 Total Counted 100 06/10/19 05:34 Seg Neutrophils % [place] 06/10/19 05:34 Seg Neuts % (Manual) 96.0 % (40.0-70.0) H 06/10/19 05:34 Band Neutrophils % 0 % 06/10/19 05:34 Lymphocytes % (Manual) 3.0 % (13.4-35.0) L 06/10/19 05:34 Reactive Lymphs % (Man) 0 % 06/10/19 05:34 Monocytes % (Manual) 1.0 % (0.0-7.3) 06/10/19 05:34 Eosinophils % (Manual) 0 % (0.0-4.3) 06/10/19 05:34 Basophils % (Manual) 0 % (0.0-1.8) 06/10/19 05:34 Metamyelocytes % 0 % 06/10/19 05:34 Myelocytes % 0 % 06/10/19 05:34 Promyelocytes % 0 % 06/10/19 05:34 Blast Cells % 0 % 06/10/19 05:34 Nucleated RBC % Not Reportable 06/10/19 05:34 Seg Neutrophils # [place] 06/09/19 21:01 Seg Neutrophils # Man 16.7 K/mm3 (1.8-7.7) H 06/10/19 05:34 Band Neutrophils # 0.0 K/mm3 06/10/19 05:34 Lymphocytes # (Manual) 0.5 K/mm3 (1.2-5.4) L 06/10/19 05:34 Abs React Lymphs (Man) 0.0 K/mm3 06/10/19 05:34 Monocytes # (Manual) 0.2 K/mm3 (0.0-0.8) 06/10/19 05:34 Eosinophils # (Manual) 0.0 K/mm3 (0.0-0.4) 06/10/19 05:34 Basophils # (Manual) 0.0 K/mm3 (0.0-0.1) 06/10/19 05:34 Metamyelocytes # 0.0 K/mm3 06/10/19 05:34 Myelocytes # 0.0 K/mm3 06/10/19 05:34 Promyelocytes # 0.0 K/mm3 06/10/19 05:34 Blast Cells # 0.0 K/mm3 06/10/19 05:34 WBC Morphology Not Reportable 06/10/19 05:34 Hypersegmented Neuts Not Reportable 06/10/19 05:34 Hyposegmented Neuts Not Reportable 06/10/19 05:34 Hypogranular Neuts Not Reportable 06/10/19 05:34 Smudge Cells Not Reportable 06/10/19 05:34 Toxic Granulation Not Reportable 06/10/19 05:34 Toxic Vacuolation Not Reportable 06/10/19 05:34 Dohle Bodies Not Reportable 06/10/19 05:34 Pelger-Huet Anomaly Not Reportable 06/10/19 05:34 Larry Rods Not Reportable 06/10/19 05:34 Platelet Estimate Consistent w auto 06/10/19 05:34 Clumped Platelets Not Reportable 06/10/19 05:34 Plt Clumps, EDTA Not Reportable 06/10/19 05:34 Large Platelets Not Reportable 06/10/19 05:34 Giant Platelets Not Reportable 06/10/19 05:34 Platelet Satelliting Not Reportable 06/10/19 05:34 Plt Morphology Comment Not Reportable 06/10/19 05:34 RBC Morphology Not Reportable 06/10/19 05:34 Dimorphic RBCs Not Reportable 06/10/19 05:34 Polychromasia Not Reportable 06/10/19 05:34 Hypochromasia Not Reportable 06/10/19 05:34 Poikilocytosis Not Reportable 06/10/19 05:34 Anisocytosis 1+ 06/10/19 05:34 Microcytosis Not Reportable 06/10/19 05:34 Macrocytosis Not Reportable 06/10/19 05:34 Spherocytes Not Reportable 06/10/19 05:34 Pappenheimer Bodies Not Reportable 06/10/19 05:34 Sickle Cells Not Reportable 06/10/19 05:34 Target Cells Not Reportable 06/10/19 05:34 Tear Drop Cells Not Reportable 06/10/19 05:34 Ovalocytes Not Reportable 06/10/19 05:34 Helmet Cells Not Reportable 06/10/19 05:34 Shin-Pal[place] Bodies Not Reportable 06/10/19 05:34 [place] Rings Not Reportable 06/10/19 05:34 [place] Cells Not Reportable 06/10/19 05:34 Bite Cells Not Reportable 06/10/19 05:34 Crenated Cell Not Reportable 06/10/19 05:34 Elliptocytes Not Reportable 06/10/19 05:34 Acanthocytes (Spur) Not Reportable 06/10/19 05:34 Rouleaux Not Reportable 06/10/19 05:34 Hemoglobin C Crystals Not Reportable 06/10/19 05:34 Schistocytes Not Reportable 06/10/19 05:34 Malaria parasites Not Reportable 06/10/19 05:34 Ananth Bodies Not Reportable 06/10/19 05:34 Hem Pathologist Commnt No 06/10/19 05:34 PT 12.9 Sec. (12.2-14.9) 06/09/19 21:01 INR 0.96 (0.87-1.13) 06/09/19 21:01 APTT TNR 06/09/19 21:01 Thrombin Time 13.1 Sec. (15.1-19.6) L 06/09/19 21:01 Sodium 138 mmol/L (137-145) 06/10/19 05:34 Potassium 4.0 mmol/L (3.6-5.0) D 06/10/19 05:34 Chloride 100.0 mmol/L (98-107) 06/10/19 05:34 Carbon Dioxide 21 mmol/L (22-30) L 06/10/19 05:34 Anion Gap 21 mmol/L 06/10/19 05:34 BUN 17 mg/dL (7-17) 06/10/19 05:34 Creatinine 0.5 mg/dL (0.7-1.2) L 06/10/19 05:34 Estimated GFR > 60 ml/min 06/10/19 05:34 BUN/Creatinine Ratio 34 % 06/10/19 05:34 Glucose 146 mg/dL (65-100) H 06/10/19 05:34 Calcium 9.8 mg/dL (8.4-10.2) 06/10/19 05:34 Total Bilirubin 0.50 mg/dL (0.1-1.2) 06/09/19 21:01 AST 17 units/L (5-40) 06/09/19 21:01 ALT 17 units/L (7-56) 06/09/19 21:01 Alkaline Phosphatase 106 units/L (35-129) 06/09/19 21:01 Ammonia 45.0 umol/L (25-60) 06/10/19 05:34 Total Creatine Kinase 52 units/L (30-135) 06/09/19 21:01 CK-MB (CK-2) 1.4 ng/mL (0.0-4.0) 06/09/19 21:01 CK-MB (CK-2) Rel Index 2.6 (0-4) 06/09/19 21:01 Troponin T < 0.010 ng/mL (0.00-0.029) 06/09/19 21:01 Total Protein 9.0 g/dL (6.3-8.2) H 04/23/20 21:01 Albumin 4.5 g/dL (3.9-5) 06/09/19 21:01 Albumin/Globulin Ratio 1.0 % 06/09/19 21:01 Triglycerides 52 mg/dL (2-149) 06/10/19 05:34 Cholesterol 269 mg/dL (50-199) H 06/10/19 05:34 LDL Cholesterol Direct 172 mg/dL (50-130) H 06/10/19 05:34 HDL Cholesterol 89 mg/dL (40-59) H 06/10/19 05:34 Cholesterol/HDL Ratio 3.02 % 06/10/19 05:34 TSH 2.470 mlU/mL (0.270-4.200) 06/09/19 21:01 Plasma/Serum Alcohol < 0.01 % (0-0.07) 06/09/19 21:01 Blood Type O POSITIVE 06/09/19 21:01 Antibody Screen Negative 06/09/19 21:01 Hubbard/IV: IV Catheter Type [Right] Peripheral IV Active Medications - Current Medications Current Medications: Generic Name Dose Route Start Last Admin Trade Name Freq PRN Reason Stop Dose Admin Acetaminophen 650 mg 06/10/19 04:43 Tylenol PO Q4H PRN Pain, Mild (1-3) Atorvastatin Calcium 40 mg 06/10/19 22:00 Lipitor PO QHS LETY Bisacodyl 10 mg 06/10/19 04:43 Dulcolax [place] QDAY PRN Constipation Hydralazine HCl 5 mg 06/10/19 03:25 06/10/19 07:30 Apresoline IV 5 mg Q6H PRN Administration Hypertension Sodium Chloride 1,000 mls @ 75 mls/hr 06/10/19 06:27 Nacl 0.45% 1000 Ml IV DIRECT LETY Labetalol HCl 20 mg 06/10/19 12:44 06/10/19 13:35 Labetalol IV 20 mg Q4HR PRN Administration SBP >/=160 Lactulose 200 gm 06/10/19 05:00 06/10/19 14:39 Cephulac OH Not Given Q6H [facility] Ondansetron HCl 4 mg 06/10/19 04:43 Zofran IV Q8H PRN Nausea And Vomiting Sodium Chloride 10 ml 06/10/19 04:43 Sodium Chloride Flush Syringe 10 Ml IV PRN PRN LINE FLUSH
--- NOTE | 2019-06-10 15:21 | Discharge Summary ---
Providers - Providers Date of Admission: 06/10/19 04:05 Date of discharge: 06/10/19 Attending physician: TASHA CLEANING 06/10/19 Consult to Physician [CONS] Routine Comment: Consulting Provider: MELISSA MOORE Physician Instructions: Reason For Exam: cva 06/10/19 04:44 Occupational Therapy Evaluate and Treat [CONS] Routine Comment: Reason For Exam: Neuro deficits Physical Therapy Evaluation and Treat [CONS] Routine Comment: Reason For Exam: Neuro deficits 06/10/19 10:38 Consult to Physician [CONS] Urgent Comment: Consulting Provider: CURTIS RAJAN Physician Instructions: Reason For Exam: critical care management 06/10/19 11:47 Consult to Wound/ET Nurse [CONS] Routine Reason For Exam: wound eval 06/10/19 12:00 Speech Therapy Evaluation and Treat [CONS] Routine Reason For Exam: Failed Swallow Screen: CVA Primary care physician: IS ARCHITECT Hospitalization Condition: Stable Hospital course: Patient is a 54 yo woman with a history of hypertension and marijuana use who presented to [facility] ED with right facial droop, right sided weakness and excessive aphasia with N/V. She gives no history. Her last known well time was 1944 She tPA started at 12:15am on 06/10/19. She had episodes of nausea and vomiting in the ER, repeat CT head was done which was negative patient had contrast infiltrated in the right arm which is now swollen. 06/10/19: d/w Neurologist Dr. Moore, who recommends transfer to [facility], [place], so I called and accepted by Dr. Austin. I called paternal twin brother Jose, , no answer, left message. Then I called and spoke with oldest son, Georgi Hayes , He will speak with daughter, Bull Hayes . Patient's other son, Sridhar Hayes lives in the [facility] area. No COVID-19 exposure. Patient was on vacation 1 month prior to covid and never returned because she got laid off. I told them she is going to [place] for Neurosurgery follow up and stroke has completed per Dr. Machuca and Dr. Austin from [place]. I have asked [facility] Charge nurse to send a CD rom copy * CT head without contrast IMPRESSION: No acute/ subacute infarction * CT neck wo con IMPRESSION: 1. Massively enlarged thyroid gland consistent with goiter. The left thyroid lobe extends inferiorly to involve the superior mediastinum. Goiter is causing extrinsic mass effect on the upper portion of the trachea. 2. No other significant finding. * CT chest wo con IMPRESSION: 1. Massively enlarged thyroid gland consistent with goiter. No evidence of a discrete thyroid mass. There is mass effect on the trachea. 2. No pulmonary abnormality. * Brain MRI IMPRESSION: Acute left frontal and parietal cortical infarct, with no evidence of hemorrhage. * Brain MRA FINDINGS: There is absent flow signal in the left middle cerebral artery, as well as limited flow signal visible in anterior cerebral arteries bilaterally. This is likely due to a combination of vessel occlusion or slow flow and the motion artifact mentioned above. The overall caliber of the left internal carotid artery is relatively smaller than the right. In the posterior circulation, there is limited flow signal visible in a right posterior cerebral artery, also of uncertain significance based on the presence of motion artifact. Irregularity is seen along the course of the left posterior cerebral artery. In combination with the findings on the brain MR images, which demonstrate left anterior middle cerebral artery territory ischemia, findings of nonvisualization left middle cerebral artery are likely related to occlusion. Absence of flow signal in anterior posterior cerebral arteries is of uncertain significance given the level of motion artifact. Depending on details of the clinical circumstances, further evaluation with improved quality MR angiography or contrast-enhanced CT angiography could be performed. 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 OF ABSENT FLOW SIGNAL SUGGEST LARGE VESSEL OCCLUSION Acute CVA, status post TPA Enlarged goiter compressing the trachea: Consult endocrinology as [place] advised, patient asymptomatic Hypokalemia, replete potassium Elevated ammonia level, continue lactulose Leukocytosis most likely stress-induced, monitor Dyslipidemia, new dx: start Lipitor 40mg qhs DVT prophylaxis Disposition: [facility] Disposition: DC/TX-70 ANOTHER TYPE HLTHCARE Time spent for discharge: 32 minutes Core Measure Documentation - Palliative Care Palliative Care/ Comfort Measures: Not Applicable - Core Measures Any of the following diagnoses?: stroke - VTE Discharge Requirements Deep Vein Thrombosis/Pulmonary Embolism Present on Admission: No Has pt received <5 days of overlap therapy or INR<2.0: No Anticoagulant overlap therapy prescribed at discharge: No Contraindication No Overlap Therapy order at DC: Not Indicated - Stroke Discharge Requirements Statin for LDL = or >70 mg/dl on DC: No Reason for no statin on DC: Medical Contraindication (Start Aspirin possibly tomorrow 06/11/19 which is 24 hours after TPA which was started at 12:15am on 06/10/19) Anticoag for atrial fib/atrial flutter: No Reason for no anticoag for AF/F on DC: Not Indicated Antithrombotic for ischemic stroke: Yes Exam - Physical Exam Narrative exam: Gen: WDWN, NAD, Awake, Alert, Orientated following commands but can't speak HEENT: NCAT, EOMI, PERRL, OP Clear +alopecia Neck: supple, no adenopathy, no thyromegaly, no JVD CVS/Heart: RRR, normal S1S2, pulses present bilaterally Chest/Lungs: CTA B, Symmetrical chest expansion, good air entry bilaterally GI/Abdomen: soft, NTND, good bowel sounds, no guarding or rebound /Bladder: no suprapubic tenderness, no CVA or paraspinal tenderness Extermity/Skin: no c/c/e, no obvious rash MSK: FROM x 3, 0/5 RUE, twitch RLE to commands Neuro: CN 2-12 grossly intact except speech, facial droop, aphasia, right hemiparesis Psych: calm - Constitutional Vitals: Temp Pulse Resp BP Pulse Ox 98.9 F 85 18 181/78 99 06/10/19 08:00 06/10/19 14:41 06/10/19 14:41 06/10/19 14:41 06/10/19 14:41 Plan Activity: up only with assistance, fall precautions Diet: other (passed Swallow evaluation by Speech Therapy) Additional Instructions: Start Aspirin possibly tomorrow, 24 hours after TPA which was started at 12:15am on 06/10/19 Follow up with: PRIMARY CARE, [Primary Care Provider] - 3-5 Days Prescriptions: AtorvaSTATin [Lipitor] 40 mg PO QHS #30 tablet
[2019-06-10 17:19] VITALS: BP 193/89
== END 2019-06-10 16:50 | disposition short-term general hospital (02) | DRG 61 ==
LOC: ED 20:44 → CC1 06-10 04:05
PROVIDERS: ADMIT Internal Medicine; ATTEND Internal Medicine
DX: I63.512 Cerebral infarction due to unspecified occlusion or stenosis of left middle cerebral artery (principal); G93.41 Metabolic encephalopathy; E72.20 Disorder of urea cycle metabolism, unspecified; G81.91 Hemiplegia, unspecified affecting right dominant side; I63.9 Cerebral infarction, unspecified; E87.6 Hypokalemia; I10 Essential (primary) hypertension; D72.829 Elevated white blood cell count, unspecified; E78.5 Hyperlipidemia, unspecified; E04.9 Nontoxic goiter, unspecified
CPT/HCPCS: 36415; 70450; 70490; 70544; 70551; 71045; 71250; 80048; 80053; 80061; 80320; 82140; 82550; 82553; 82962; 84443; 84484; 85007; 85025; 85610; 85670; 86850; 86900; 86901; 93005; 93306; G0378; G0480; J0360; J2405; J2997; J3480; J7030; J7050

== ENCOUNTER 2020-12-30 10:31 | Emergency (ER) | payer MEDICAID ==
[2020-12-30 11:20] VITALS: BP 169/72
[2020-12-30] MEDS ORDERED: LISINOPRIL 20 MG TAB PO ONE (11:27)
[2020-12-30] MEDS ORDERED: levETIRAcetam 1000 MG/NS 0.75% 1,000 MG/100 ML BAG IV ONE (11:27)
[2020-12-30] MEDS ORDERED: amLODIPine 5 MG TAB PO ONE (11:27)
[2020-12-30 12:10] LABS: Basophils # (Auto) 0.1 K/mm3 (0.0-0.1); Basophils % (Auto) 0.5 % (0.0-1.8); Eosinophils # (Auto) 0.2 K/mm3 (0.0-0.4); Hematocrit 41.9 % (30.3-42.9); Hemoglobin 13.1 gm/dl (10.1-14.3); Lymphocytes # (Auto) 2.1 K/mm3 (1.2-5.4); Lymphocytes % (Auto) 13.6 % (13.4-35.0); Mean Corpuscular HGB Conc 31 % (30-34); Mean Corpuscular Volume 85 fl (79-97); Monocytes # (Auto) 0.7 K/mm3 (0.0-0.8); Monocytes % (Auto) 4.4 % (0.0-7.3); Red Blood Count 4.94 M/mm3 (3.65-5.03); Red Cell Distribution Width 13.5 % (13.2-15.2)
--- NOTE | 2020-12-30 12:13 | Emergency Department Report ---
ED Seizure HPI - General Chief Complaint: Seizure Stated Complaint: SEIZURE Time Seen by Provider: 12/30/20 11:04 Source: EMS Mode of arrival: Stretcher Limitations: No Limitations - History of Present Illness Initial Comments: 55-year-old female with a past medical history of diabetes with history of residual right-sided deficits and slurred speech, and a history of hypertension presents to the hospital with a seizure witnessed this morning. Patient does not recall what happened. Son at the bedside states he was sitting on the bed talking when she became unresponsive, eyes rolled back, and her body stiffened up for approximately 5 to 6 minutes. She was confused afterwards. Patient does endorse mild tongue biting and urinary incontinence. As per son her mental status is improving. Patient is oriented to place, name, but not to year. She does not have any pain or active complaints. Patient takes Keppra 1000 mg twice daily with last dose yesterday. Patient has been trying to stretch out her medications until her follow-up appointment tomorrow morning. She also has been out of lisinopril and amlodipine for the past 2 days - Related Data Home Medications Medication Instructions Recorded Confirmed Last Taken Aspirin 81 mg PO QDAY 12/30/20 12/30/20 Unknown AtorvaSTATin 80 mg PO QHS 12/30/20 12/30/20 Unknown Gabapentin 600 mg PO TID 12/30/20 12/30/20 Unknown Previous Rx's Medication Instructions Recorded Last Taken Type AtorvaSTATin [Lipitor] 40 mg PO QHS #30 tablet 06/10/19 Unknown Rx Lisinopril 40 mg PO QDAY #30 12/30/20 Unknown Rx amLODIPine 10 mg PO QHS #30 12/30/20 Unknown Rx levETIRAcetam 1,000 mg PO BID #60 12/30/20 Unknown Rx Allergies Allergy/AdvReac Type Severity Reaction Status Date / Time No Known Allergies Allergy Verified 06/09/19 21:09 ED Review of Systems ROS: Stated complaint: SEIZURE Other details as noted in HPI Comment: All other systems reviewed and negative ED Past Medical Hx - Past Medical History Hx Hypertension: Yes Hx CVA: Yes (right side deficit) Hx Congestive Heart Failure: No Hx Diabetes: No Hx Asthma: No Hx COPD: No - Social History Smoking Status: Unknown if ever smoked - Medications Home Medications: Home Medications Medication Instructions Recorded Confirmed Last Taken Type AtorvaSTATin [Lipitor] 40 mg PO QHS #30 tablet 06/10/19 12/30/20 Unknown Rx Aspirin 81 mg PO QDAY 12/30/20 12/30/20 Unknown History AtorvaSTATin 80 mg PO QHS 12/30/20 12/30/20 Unknown History Gabapentin 600 mg PO TID 12/30/20 12/30/20 Unknown History Lisinopril 40 mg PO QDAY #30 12/30/20 Unknown Rx amLODIPine 10 mg PO QHS #30 12/30/20 Unknown Rx levETIRAcetam 1,000 mg PO BID #60 12/30/20 Unknown Rx ED Physical Exam - General Limitations: No Limitations - Other Other exam information: General: No acute distress Head: Atraumatic Eyes: normal appearance ENT: Moist mucous membranes Neck: Normal appearance, no midline tenderness Chest: Clear to auscultation bilaterally CV: Tachycardic regular rhythm Abdomen: Soft, normal bowel sounds, nontender, nondistended, no rebound or guarding Back: Normal inspection Extremity: Normal inspection, full range of motion Neuro: Alert O x 2, mild right facial droop, right arm contracted with minimal movement, right leg weakness, 5/5 left arm and left leg strength. Pt is mildly slurred speech. Deficit is chronic as per patient and son at the Psych: Appropriate behavior Skin: No rash ED Course Vital Signs 12/30/20 12/30/20 12/30/20 11:10 11:15 11:21 Temperature Pulse Rate 106 H 111 H Respiratory 19 8 L 16 Rate Blood Pressure 169/72 Blood Pressure [Left] O2 Sat by Pulse 99 100 100 Oximetry 12/30/20 12/30/20 12/30/20 11:31 11:35 11:36 Temperature Pulse Rate 109 H 106 H 104 H Respiratory 8 L Rate Blood Pressure 169/72 169/72 169/72 Blood Pressure [Left] O2 Sat by Pulse 100 Oximetry 12/30/20 12/30/20 12/30/20 11:45 12:01 12:15 Temperature Pulse Rate 103 H 94 H 94 H Respiratory 18 24 11 L Rate Blood Pressure 169/72 169/72 169/72 Blood Pressure [Left] O2 Sat by Pulse 99 99 100 Oximetry 12/30/20 12/30/20 12:20 13:01 Temperature 98.8 F Pulse Rate 94 H Respiratory 14 Rate Blood Pressure Blood Pressure 169/72 [Left] O2 Sat by Pulse 98 Oximetry ED Medical Decision Making - Lab Data Result diagrams: 12/30/20 11:35 12/30/20 12:27 Lab Results 12/30/20 12/30/20 12/30/20 Range/Units 11:35 12:27 12:30 WBC 15.7 H (4.5-11.0) K/mm3 RBC 4.94 (3.65-5.03) M/mm3 Hgb 13.1 (10.1-14.3) gm/dl Hct 41.9 (30.3-42.9) % MCV 85 (79-97) fl MCH 27 L (28-32) pg MCHC 31 (30-34) % RDW 13.5 (13.2-15.2) % Plt Count 201 (140-440) K/mm3 Lymph % (Auto) 13.6 (13.4-35.0) % [place] % (Auto) 4.4 (0.0-7.3) % Eos % (Auto) 1.0 (0.0-4.3) % Baso % (Auto) 0.5 (0.0-1.8) % Lymph # (Auto) 2.1 (1.2-5.4) K/mm3 [place] # (Auto) 0.7 (0.0-0.8) K/mm3 Eos # (Auto) 0.2 (0.0-0.4) K/mm3 Baso # (Auto) 0.1 (0.0-0.1) K/mm3 Seg Neutrophils % 80.5 H (40.0-70.0) % Seg Neutrophils # 12.6 H (1.8-7.7) K/mm3 Sodium 136 L (137-145) mmol/L Potassium 4.9 (3.6-5.0) mmol/L Chloride 100.7 (98-107) mmol/L Carbon Dioxide 23 (22-30) mmol/L Anion Gap 17 mmol/L BUN 10 (7-17) mg/dL Creatinine 0.4 L (0.6-1.2) mg/dL Estimated GFR > 60 ml/min BUN/Creatinine Ratio 25 % Glucose 118 H (65-100) mg/dL POC Glucose 96 (70-105) mg/dL Calcium 9.4 (8.4-10.2) mg/dL Magnesium 2.00 (1.7-2.3) mg/dL - Medical Decision Making 55-year-old female presents to the hospital with seizure secondary to noncompliance. Jacobo has hypertension with noncompliance of 2 of her blood pre ssure medication. Labs unremarkable and patient at baseline mental status. Patient received Keppra, lisinopril, amlodipine in the ED. She will receive 1 month supply of her medication. Patient encouraged to follow-up with PMD as scheduled tomorrow morning Critical Care Time: No Critical care attestation.: If time is entered above; I have spent that time in minutes in the direct care of this critically ill patient, excluding procedure time. ED Disposition Clinical Impression: Breakthrough seizure, Noncompliance with medication regimen, Chronic hypertension Disposition: 01 HOME / SELF CARE / HOMELESS Is pt being admited?: No Does the pt Need Aspirin: No Condition: Stable Instructions: Hypertension (ED), Seizure, Adult, [id number], Hypertension, Adult Additional Instructions: Take the medication as prescribed. Follow-up with your doctor or doctor/clinic provided. Return if symptoms worsen as indicated by your discharge instructions. Prescriptions: amLODIPine 10 mg PO QHS #30 levETIRAcetam 1,000 mg PO BID #60 Lisinopril 40 mg PO QDAY #30 Referrals: PRIMARY CAREMD [Primary Care Provider] - 12/31/20 (As scheduled) Time of Disposition: 13:22
[2020-12-30 12:53] LABS: BUN/Creatinine Ratio 25; Blood Urea Nitrogen 10 mg/dL (7-17); Calcium 9.4 mg/dL (8.4-10.2); Hemolysis Index 255
[2020-12-30 13:13] LABS: Platelet Count 201 K/mm3 (140-440)
== END 2020-12-30 13:55 | disposition home or self-care (01) ==
LOC: ED 10:31
DX: G40.919 Epilepsy, unspecified, intractable, without status epilepticus (principal); I10 Essential (primary) hypertension; Z91.14 Patient's other noncompliance with medication regimen; Z86.73 Personal history of transient ischemic attack (TIA), and cerebral infarction without residual deficits
CPT/HCPCS: 36415; 80048; 82962; 83735; 85025; 96374; 99284; J1953